=== PATIENT | male | born 1995 | race Hispanic/Latino ===

== ENCOUNTER 2017-03-30 23:09 | Emergency (ER) | payer OTHER ==
[~2017-03-30] VITALS: Ht 172.7 cm; Wt 79.4 kg
--- NOTE | 2017-03-31 00:51 | ED EAR COMPLAINT ---
History of Present Illness General Chief Complaint: Skin Rash/ Abcess Stated Complaint: LUMP NEXT TO LEFT EYE Source: patient, family Exam Limitations: no limitations Vital Signs & Intake/Output Vital Signs & Intake/Output Vital Signs Date Time Temp Pulse Resp B/P B/P Pulse O2 O2 Flow FiO2 Mean Ox Delivery Rate 03/30 2324 97.7 109 18 136/86 97 Room Air ED Intake and Output 03/31 0000 03/30 1200 Intake Total Output Total Balance Patient 175 lb Weight Weight Reported by Patient Measurement Method Allergies Coded Allergies: NO KNOWN ALLERGIES (03/31/17) Reconcile Medications Amoxicillin/Potassium Clav (Augmentin 875-125 Tablet) 875 MG-125 MG TABLET 1 TAB PO BID cellulitis Ibuprofen 600 MG TABLET 1 TAB PO Q6PRN PRN pain with food Triage Note: PT TO ER C/C LUMP BEHIND LEFT EAR FIRST NOTICED TONIGHT, PAIN 04/06. Triage Nurses Notes Reviewed? yes Onset: Abrupt Duration: unknown duration Timing: recent history Severity: mild No Modifying Factors: none HPI: 22-year-old male comes into emergency room with swelling and pain behind left ear. Patient is unsure as to how long this is been going on. Some redness. No fever chills. No complaints of vomiting. No prior history. (Fady Casanova) Past History Travel History Traveled to [place] past 21 day No Medical History Any Pertinent Medical History? see below for history Neurological: NONE EENT: NONE Cardiovascular: NONE Respiratory: NONE Gastrointestinal: NONE Hepatic: NONE Renal: NONE Musculoskeletal: NONE Psychiatric: NONE Endocrine: NONE Blood Disorders: NONE Cancer(s): NONE [employer] SYSTEMS ENGINEER/Reproductive: NONE Surgical History Surgical History: non-contributory Psychosocial History What is your primary language Lao Tobacco Use: Current Daily Use Daily Tobacco Use Amount/Type: =< 4 Cigarettes daily Family History Hx Contributory? No (Fady Casanova) Review of Systems Review of Systems Constitutional: Reports: no symptoms. EENTM: Reports: see HPI. Respiratory: Reports: no symptoms. Cardiovascular: Reports: no symptoms. GI: Reports: no symptoms. Genitourinary: Reports: no symptoms. Musculoskeletal: Reports: no symptoms. Skin: Reports: see HPI. Neurological/Psychological: Reports: no symptoms. Hematologic/Endocrine: Reports: no symptoms. Immunologic/Allergic: Reports: no symptoms. All Other Systems: Reviewed and Negative (Fady Casanova) Physical Exam Physical Exam General Appearance: well developed/nourished, mild distress Head: atraumatic Eyes: Bilateral: normal appearance. Ears: Left: canal normal, Tympanic normal. Nose: normal inspection Mouth/Throat: normal mouth inspection Neck: normal inspection Cardiovascular/Respiratory: no respiratory distress Back: normal inspection Neurologic/Psych: awake, alert, oriented x 3, normal mood/affect Skin: intact, normal color, warm/dry, some erythema behind left ear, tenderness over left mastoid bone, some swelling, (Fady Casanova) Progress Differential Diagnoses I considered the following diagnoses in my evaluation of the patient: Otitis media, otitis externa, mastoiditis, cellulitis, Plan of Care: Orders Procedure Date/time Status CT INT AUD CANALS WO IV CONT 03/31 36 Active Initial ED EKG: none (Fady Casanova) Differential Diagnoses I considered the following diagnoses in my evaluation of the patient: Diagnostic Imaging: Viewed by Me: CT Scan. Discussed w/RAD: CT Scan. Radiology Impression: 1. Mastoid air cells are well-aerated. No soft tissue inflammatory change around either mastoid bone. 2. Stable left anterior temporal lobe convexity arachnoid cyst. 3. Incidental thinning of the right sigmoid plate without definite dehiscence. 4. Opacification of a right ethmoid air cell. (Charity AVALOS,Salas) Departure Departure Condition: Stable Departure Forms: Customer Survey General Discharge Information Prescriptions: Current Visit Scripts Amoxicillin/Potassium Clav (Augmentin 875-125 Tablet) 1 TAB PO BID #20 TAB Ibuprofen 1 TAB PO Q6PRN PRN pain #50 TAB with food (Fady Casanova) Departure Time of Disposition: 212 Disposition: HOME OR SELF CARE Clinical Impression Primary Impression: Cellulitis Referrals: Viviana Lara MD Call for ENT follow up PA/MULTIGRAPH OPERATOR Co-Sign Statement Statement: ED Attending supervision documentation- I saw and evaluated the patient. I have also reviewed all the pertinent lab results and diagnostic results. I agree with the findings and the plan of care as documented in the PA's/MULTIGRAPH OPERATOR's documentation. x I have reviewed the ED Record and agree with the PA's/MULTIGRAPH OPERATOR's documentation. [] Additions or exceptions (if any) to the PAs/MULTIGRAPH OPERATOR's note and plan are summarized below: [] (Charity AVALOS,Salas)
--- NOTE | 2017-03-31 02:00 | CT SCAN REPORT ---
EXAMINATION: CT INTERNAL AUDITORY CANALS WITHOUT CONTRAST CLINICAL INFORMATION: Evaluate for mastoiditis on the left side, swelling, redness. COMPARISON: CT head dated 05/28/2011. TECHNIQUE: Contiguous axial imaging was performed without intravenous administration of contrast. Axial and coronal reformats were created by the technologist and reviewed. DLP: 515 mGy-cm FINDINGS: Left anterior temporal convexity arachnoid cyst is again noted. Visualized portions of the brain are otherwise unremarkable. Bilaterally, the external ear cavities are normal. No thickening of the tympanic membrane on either side. The middle ear cavities are well-aerated. The ossicular chains are intact. No inner ear dysplasias. There is thinning of the right sigmoid plate. The carotid plates are intact bilaterally. The mastoid air cells are well-aerated. No soft tissue inflammatory change around either mastoid. There is opacification of a right ethmoid air cell. IMPRESSION: 1. Mastoid air cells are well-aerated. No soft tissue inflammatory change around either mastoid bone. 2. Stable left anterior temporal lobe convexity arachnoid cyst. 3. Incidental thinning of the right sigmoid plate without definite dehiscence. 4. Opacification of a right ethmoid air cell.
[2017-03-31] MEDS ORDERED: AUGMENTIN 875-1 EACH PO (02:14)
[2017-03-31] MEDS ORDERED: IBUPROFEN600 M1 PO (02:16)
[2017-03-31 02:37] VITALS: BP 132/82
== END 2017-03-31 02:38 ==
LOC: ERH 23:09
DX: L03.221 Cellulitis of neck (principal)